=== PATIENT | male | born 1975 | race Caucasian/White ===

== ENCOUNTER 2016-08-09 13:31 | Emergency (ER) | payer MEDICARE, OTHER ==
[~2016-08-09] VITALS: Ht 175.3 cm; Wt 81.6 kg
[2016-08-09] MEDS ORDERED: FLUV100T2 PO ×2 (14:00)
[2016-08-09] MEDS ORDERED: ADDE10CA PO (14:00)
[2016-08-09 15:25] VITALS: BP 156/89
== END 2016-08-09 15:27 | disposition home or self-care (01) ==
LOC: EDBD 13:31 → M ED 14:55
DX: F10.129 Alcohol abuse with intoxication, unspecified (principal); Z87.820 Personal history of traumatic brain injury; Z79.899 Other long term (current) drug therapy